=== PATIENT | female | born 1965 | race Caucasian/White ===

== ENCOUNTER → 2017-12-06 | Outpatient (CLI) | payer MEDICARE | END | disposition home or self-care (01) | LOC: RAD 14:57 | PROVIDERS: ATTEND Family Medicine | DX: M79.601 Pain in right arm (principal) | CPT/HCPCS: 36415; 84443; 86704; 86706; 86803 ==

== ENCOUNTER → 2018-03-07 | Outpatient (CLI) | payer MEDICARE ==
[~2018-03-07] MED LIST: FENTANYL PF 100 MCG/2ML ONE; FLUMAZENIL 0.1 MG/1 ML, 5ML ONE; MIDAZOLAM 1 MG/ML, 5ML ONE; NALOXONE 1 MG/ML, 2ML ONE
== END | disposition home or self-care (01) ==
LOC: RAD 12:14
PROVIDERS: ATTEND Family Medicine
DX: M79.601 Pain in right arm (principal)
CPT/HCPCS: 73218; 99156; J2250; J3010; J2310

== ENCOUNTER 2018-04-19 10:54 | Day surgery (SDC) | payer MEDICARE ==
[~2018-04-19] VITALS: Ht 162.6 cm; Wt 84.4 kg
[~2018-04-19 10:54] MED LIST changes: +ARIP2TAB2 PO; -FENTANYL PF 100 MCG/2ML ONE; -FLUMAZENIL 0.1 MG/1 ML, 5ML ONE; +LEVO112T4 PO; -MIDAZOLAM 1 MG/ML, 5ML ONE; -NALOXONE 1 MG/ML, 2ML ONE; +OMEP-110 PO; +SERT25TA PO; +SOLI5TAB2 PO
[2018-04-19 11:33] VITALS: BP 117/76
[2018-04-19] MEDS ORDERED: LACTATED RINGERS 1,000 ML IV SCH (12:18)
[2018-04-19] MEDS ORDERED: DEXAMETHASONE 4 MG/ML, 1ML ONE (12:30)
[2018-04-19] MEDS ORDERED: PROPOFOL 10 MG/ML, 20ML ONE (12:30)
[2018-04-19] MEDS ORDERED: SUCCINYLCHOLINE 20 MG/ML, 10ML ONE (12:30)
[2018-04-19] MEDS ORDERED: ROCURONIUM 10 MG/ML,10ML ONE (12:30)
[2018-04-19] MEDS ORDERED: FENTANYL PF 100 MCG/2ML IV PRN (13:30)
[2018-04-19] MEDS ORDERED: PROMETHAZINE 25 MG/ML, 1ML IV PRN (13:30)
[2018-04-19] MEDS ORDERED: PROMETHAZINE 12.5 MG SUPP PR PRN (13:30)
[2018-04-19] MEDS ORDERED: ONDANSETRON ODT 8 MG PO PRN (13:30)
[2018-04-19] MEDS ORDERED: MIDAZOLAM 1 MG/ML, 2ML IV PRN (13:30)
[2018-04-19] MEDS ORDERED: MEPERIDINE/PF 25MG/0.5ML IVPush PRN (13:30)
[2018-04-19] MEDS ORDERED: MORPHINE SULFATE 4 MG/ML, 1ML IVPush PRN (13:30)
[2018-04-19] MEDS ORDERED: LABETALOL 5MG/ML, 20ML IV PRN (13:30)
[2018-04-19] MEDS ORDERED: ACETAMINOPHEN 325 MG TABLET PO PRN (13:30)
[2018-04-19] MEDS ORDERED: OXYcodone 5 MG/5 ML ORAL.SOL UDC PO PRN (13:30)
[2018-04-19] MEDS ORDERED: ALBUTEROL SULFATE 2.5 MG/3 ML NPPB PRN (13:30)
[2018-04-19] MEDS ORDERED: hydrALAzine 20 MG/ML, 1ML IV PRN (13:30)
== END 2018-04-19 15:15 ==
LOC: OUT 10:54 → EDSTATUS 12:45 → OUT 15:15
PROVIDERS: ATTEND Family Medicine
DX: M79.641 Pain in right hand (principal); J45.909 Unspecified asthma, uncomplicated; F41.9 Anxiety disorder, unspecified; F32.9 Major depressive disorder, single episode, unspecified; F17.210 Nicotine dependence, cigarettes, uncomplicated; Z86.19 Personal history of other infectious and parasitic diseases; Z87.39 Personal history of other diseases of the musculoskeletal system and connective tissue; Z72.89 Other problems related to lifestyle
CPT/HCPCS: 73218; 82962; J0330; J1100; J2704

== ENCOUNTER 2019-06-28 17:46 | Emergency (ER) | payer MEDICARE, OTHER ==
[~2019-06-28] VITALS: Ht 162.6 cm; Wt 74.7 kg
[2019-06-28 22:23] VITALS: BP 121/55
== END 2019-06-28 22:53 | disposition home or self-care (01) ==
LOC: ED 18:20
DX: T40.2X1A Poisoning by other opioids, accidental (unintentional), initial encounter (principal); F15.129 Other stimulant abuse with intoxication, unspecified; K21.9 Gastro-esophageal reflux disease without esophagitis; F17.200 Nicotine dependence, unspecified, uncomplicated; Z90.710 Acquired absence of both cervix and uterus
CPT/HCPCS: 36415; 71045; 80048; 80307; 82040; 85025; 93005; 96361; 96374; 99291; J2310; J7030